=== PATIENT | female | born 1995 | race Caucasian/White ===

== ENCOUNTER 2018-05-21 02:21 | Emergency (ER) | payer MEDICAID ==
[~2018-05-21] VITALS: Ht 160 cm; Wt 80.9 kg
[2018-05-21 02:28] VITALS: BP 132/89
== END 2018-05-21 04:27 | disposition home or self-care (01) ==
LOC: ED 04:21
DX: S93.611A Sprain of tarsal ligament of right foot, initial encounter (principal); S93.491A Sprain of other ligament of right ankle, initial encounter; X50.1XXA Overexertion from prolonged static or awkward postures, initial encounter; Y93.89 Activity, other specified; Y99.8 Other external cause status; Y92.410 Unspecified street and highway as the place of occurrence of the external cause
CPT/HCPCS: 99284